=== PATIENT | female | born 1945 | race Caucasian/White ===

== ENCOUNTER 2016-09-26 06:11 | Day surgery (SDC) | payer OTHER ==
[2016-09-26] MEDS ORDERED: IOHEXOL 350 MG/ML 100ML IJ ONE (07:43)
[2016-09-26] MEDS ORDERED: LIDOCAINE 2%HCL (LOCAL ANESTH.) INJ 20ML MDV ONE ×2 (07:43→10:02)
[2016-09-26] MEDS ORDERED: fentaNYL CITRATE 100 MCG/2 ML VL ONE ×2 (08:43→10:45)
[2016-09-26] MEDS ORDERED: MIDAZOLAM HCL 1MG/1ML-2 ML VIAL ONE ×2 (08:44→10:45)
[2016-09-26] MEDS ORDERED: HYDROmorphone HCL 2 MG/ML VL ONE (12:56)
[2016-09-26] MEDS ORDERED: HYDROmorphone HCL 2 MG/ML VL IV ONE (14:15)
== END 2016-09-26 14:05 | disposition home or self-care (01) ==
LOC: CATH 06:11
PROVIDERS: ATTEND Internal Medicine Cardiovascular Disease
DX: I25.10 Atherosclerotic heart disease of native coronary artery without angina pectoris (principal); I72.8 Aneurysm of other specified arteries; I34.0 Nonrheumatic mitral (valve) insufficiency; I27.2 Other secondary pulmonary hypertension
CPT/HCPCS: 93460; C1751; C1760; C1769; C1894; J1170; J1644; J2250; J3010; Q9967; 99152